=== PATIENT | male | born 1995 | race African-American/Black ===

== ENCOUNTER → 2020-05-14 15:42 | Outpatient (CLI) | payer OTHER, SELFPAY | PROVIDERS: Visit Provider Physician Assistant | DX: J02.9 Acute pharyngitis, unspecified (principal) | CPT/HCPCS: 87070; 87077; 87147 ==

== ENCOUNTER → 2025-01-01 08:55 | Outpatient (CLI) | payer OTHER, SELFPAY ==
--- NOTE | 2025-01-01 09:00 | DI.US.S_ITS ---
PROCEDURE: US EXTREMELY NONVASC UPPER RT INDICATIONS: lipoma TECHNIQUE: Real-time scanning was performed of the right shoulder , with image documentation. COMPARISON: None. FINDINGS AND IMPRESSION: At the area of clinical concern in the right shoulder, there is subcutaneous lesion measuring 3.5 x 0.6 x 3.6 cm. This is isoechoic and well-circumscribed, probably a lipoma. Clinical followup is recommended. If there is new or worsening clinical concern, reimaging could be obtained. Dictated by: Camacho Lind M.D. on 01/01/2025 at 9:30 Approved by: Camacho Lind M.D. on 01/01/2025 at 9:31
== END ==
LOC: US 08:58
PROVIDERS: PCP Registered Nurse; Referring Provider Registered Nurse; Visit Provider Registered Nurse
DX: D17.21 Benign lipomatous neoplasm of skin and subcutaneous tissue of right arm (principal)
CPT/HCPCS: 76882